=== PATIENT | male | born 1990 | race Caucasian/White ===

== ENCOUNTER 2023-12-05 08:00 | Outpatient (RCR) | payer BC, SELFPAY | END 2024-03-05 11:46 | disposition home or self-care (01) | PROVIDERS: Visit Provider Dentist General Practice | DX: M26.609 Unspecified temporomandibular joint disorder, unspecified side (principal); G50.1 Atypical facial pain; M26.629 Arthralgia of temporomandibular joint, unspecified side; M54.2 Cervicalgia; R29.3 Abnormal posture; Z51.89 Encounter for other specified aftercare | CPT/HCPCS: 97110; 97140; 97161 ==